=== PATIENT | male | born 1970 | race Caucasian/White ===

== ENCOUNTER 2017-08-07 12:35 | Emergency (ER) | payer SELFPAY ==
[~2017-08-07] VITALS: Ht 170.2 cm; Wt 61.4 kg
[~2017-08-07 12:35] MED LIST: ALPR.25 PO; BAYEMIS; CALC500T PO; GLUCOMETER XX; INSU-174 SQ; LISI10 PO; LORTA5 PO; METF500 PO; NOVONP2 SQ; PROT40TA PO
[2017-08-07 12:39] VITALS: BP 146/81; PULSE 81; RESP 16; TEMP 98.2; O2SAT 98
[2017-08-07 13:53] LABS: AUTOMATED NEUTROPHIL # 8.1 TH/MM3 (1.8-7.7); BASOPHIL # 0.1 TH/MM3 (0-0.2); BASOPHIL % 0.5 % (0.0-2.0); EOSINOPHIL % 0.4 % (0.0-4.0); HEMATOCRIT 42.9 % (39.0-51.0); HEMOGLOBIN 14.6 GM/DL (13.0-17.0); LYMPH % 17.4 % (9.0-44.0); LYMPHOCYTE # 1.9 TH/MM3 (1.0-4.8); MEAN CELL VOLUME 95.6 FL (80.0-100.0); MEAN CORPUSCULAR HEMOGLOBIN 32.6 PG (27.0-34.0); MEAN CORPUSCULAR HGB CONC 34.1 % (32.0-36.0); MEAN PLATELET VOLUME 8.2 FL (7.0-11.0); MONO % 8.1 % (0.0-8.0); MONOCYTE # 0.9 TH/MM3 (0-0.9); NEUT % 73.6 % (16.0-70.0); PLATELET COUNT 224 TH/MM3 (150-450); RED BLOOD COUNT 4.48 MIL/MM3 (4.50-5.90); RED CELL DISTRIBUTION WIDTH 12.9 % (11.6-17.2); WHITE BLOOD COUNT 11.1 TH/MM3 (4.0-11.0)
[2017-08-07 14:34] LABS: BICARBONATE 27.3 MEQ/L (21.0-32.0); CALCIUM 8.4 MG/DL (8.5-10.1); CREATININE 0.88 MG/DL (0.60-1.30)
[2017-08-07] MEDS ORDERED: INSULIN HUMAN REGULAR 1,000 UNITS/10 ML VIAL SQ ONE ×2 (15:15→17:45)
[2017-08-07] MEDS ORDERED: LIDOCAINE 1%/EPINEPHrine 1:100,000 SOLN 20 ML VIAL INFIL ONE (15:15)
--- NOTE | 2017-08-07 15:42 | PD ---
HPI Chief Complaint: Skin Problem Time Seen by Provider: 15:00 Travel History International Travel<30 days: No Contact w/Intl Traveler<30days: No Traveled to known affect area: No History of Present Illness HPI Patient has a 46-year-old male presenting to the emergency proper evaluation of an abscess to his left wrist. Patient states it started gradually 1 week ago getting progressively worse. His mother is present at bedside, he states she prompted him to come in. He denies any nausea, vomiting, abdominal pain, fever , chills. He reports his pain as a 10 out of 10 in states it is throbbing. Patient adamantly denies any IV drug use. Pain as exacerbated with movement or touch, is not relieved by anything. Additionally patient is diabetic, he reports sporadic compliance with insulin due to cost. Patient states that he cannot afford the insulin pens. PFSH Past Medical History Cardiomyopathy: Yes Diabetes: Yes Deep Vein Thrombosis: Yes (right groin) Gastrointestinal Disorders: Yes (Pancreatitis) Hypertension: Yes Neurologic: Yes (viral mengitis 1996) Immunizations Current: Yes Tetanus Vaccination: Unknown Past Surgical History Other Surgery: Yes (hernia repair 1998) Social History Alcohol Use: Yes (OCC) Tobacco Use: Yes (1 pack daily) Substance Use: Yes Allergies-Medications (Allergen,Severity, Reaction): Coded Allergies: *MDRO Multi-Drug Resistant Organism (Verified Adverse Reaction, Unknown, 04/24/16) MRSA (elbow) - 01/2005; (neck) - 04/2009 MRSA PCR screen (nares) POSITIVE - 04/23/16 Reported Meds & Prescriptions Reported Meds & Active Scripts Active [employer]One Insulin Syringes/ 31G X 5/16" 0.5 ml 31 Gauge X 5/16" Mis Box .ROUTE DIRECTED Lantus Inj (Insulin Glargine) 1,000 Unit/10 Ml Vial 5 Units SQ BID Inject 5 units at 0800 and 1700 daily Tramadol (Tramadol HCl) 50 Mg Tab 50 Mg PO Q6H PRN Glucophage 500 mg (Metformin HCl) 500 Mg Tab 500 Mg PO BIDPC 14 Days Start on May 05, 2016 Dio Microlet Lancets (Lancets) Lancets Mis Ea Check blood sugar 4 times daily B-D Insulin Syringe Ultra 31G X 5/16" 0.5 ml (Insulin Syringe/Needle U-100) 1 Mis Mis Each SQ Inject insulin twice daily Glucometer Kit 1 Kit XX ACHS Check blood sugar 4 times a day [place] 5-325 mg (Hydrocodone-Acetaminophen 5-325 mg) 1 Tab 1 Tab PO Q6H PRN Protonix (Pantoprazole Sodium) 40 Mg Tab 40 Mg PO DAILY Prinivil 10 mg (Lisinopril) 10 Mg Tab 10 Mg PO Q12HR Novolin N (Insulin Isophane (Human)) 1 Ml Inj 5 Units SQ BID@08,17 31 Days Calcium Gluconate 500 Mg Tab 500 Mg PO DAILY Xanax 0.25 Mg (Alprazolam) Alprazolam 0.25 mg Tab 0.25 Mg PO Q8H PRN Review of Systems Except as stated in HPI: all other systems reviewed are Neg General / Constitutional: No: Fever, Chills HENT: No: Headaches Cardiovascular: No: Chest Pain or Discomfort Respiratory: No: Cough, Shortness of Breath Gastrointestinal: No: Nausea, Vomiting, Abdominal Pain Musculoskeletal: Positive: Pain Skin: Positive Change in Pigmentation, Positive Lesions Physical Exam Narrative GENERAL: Well-developed, well-nourished, alert male. Appears uncomfortable, in no acute distress. SKIN: Warm and dry. There is not a 3 cm x 0.5 cm fluctuant lesion to left wrist on the inner anterior aspect, induration to mid posterior forearm. There is also a 3 x 3 cm ulceration to the left bicep. There is no surrounding induration or drainage noted. 2+ radial pulse, brisk less than 3 second capillary refill. HEAD: Atraumatic. Normocephalic. EYES: Pupils equal and round. No scleral icterus. No injection or drainage. ENT: No nasal bleeding or discharge. Mucous membranes pink and moist. NECK: Trachea midline. No JVD. CARDIOVASCULAR: Regular rate and rhythm. RESPIRATORY: No accessory muscle use. Clear to auscultation. Breath sounds equal bilaterally. GASTROINTESTINAL: Abdomen soft, non-tender, nondistended. Hepatic and splenic margins not palpable. MUSCULOSKELETAL: Extremities without clubbing, cyanosis, or edema. No obvious deformities. NEUROLOGICAL: Awake and alert. No obvious cranial nerve deficits. Motor grossly within normal limits. Five out of 5 muscle strength in the arms and legs. Normal speech. PSYCHIATRIC: Appropriate mood and affect; insight and judgment normal. Data Data Last Documented VS Vital Signs Date Time Temp Pulse Resp B/P (MAP) Pulse Ox O2 Delivery O2 Flow Rate FiO2 08/07/17 16:35 97.9 88 21 142/83 (102) 99 Room Air Orders Orders Complete Blood Count With Diff (08/07/17 12:57) Basic Metabolic Panel (Bmp) (08/07/17 12:57) Beta Hydroxybutyrate (Acetone) (08/07/17 15:12) Sodium Chlor 0.9% 1000 Ml Inj (Ns 1000 M (08/07/17 15:12) Insulin Human Regular Inj (Novolin R Inj (08/07/17 15:15) Wound Culture And Gram Stain (08/07/17 15:12) Iv Access Insert/Monitor (08/07/17 15:12) Ecg Monitoring (08/07/17 15:12) Oximetry (08/07/17 15:12) Lidocai-Epi 1%-1:100,000 Inj (Xylocaine- (08/07/17 15:15) Blood Glucose (08/07/17 16:17) Oxycodone-Acetamin 5-325 Mg (Percocet (08/07/17 16:30) Hepatic Functional Panel (08/07/17 16:18) Blood Culture (08/07/17 16:39) Case Management Consult (08/07/17 ) Asp:No Reaction To [facility]/Vanc (Asp Crit (08/07/17 16:45) Asp: Does Not Meet Inpt Admit (Asp Crit: (08/07/17 16:45) Asp: Iv Antibiotics Admit Only (Asp Crit (08/07/17 16:45) Asp: Location Of [facility] Admin (Asp Crit: (08/07/17 16:45) [facility] [place] [facility] [place] (08/07/17 16:45) Dalbavancin Inj (Dalvance Inj) (08/07/17 16:39) Insulin Human Regular Inj (Novolin R Inj (08/07/17 17:45) Labs Laboratory Tests Test 08/07/17 13:15 08/07/17 15:40 White Blood Count 11.1 TH/MM3 Red Blood Count 4.48 MIL/MM3 Hemoglobin 14.6 GM/DL Hematocrit 42.9 % Mean Corpuscular Volume 95.6 FL Mean Corpuscular Hemoglobin 32.6 PG Mean Corpuscular Hemoglobin Concent 34.1 % Red Cell Distribution Width 12.9 % Platelet Count 224 TH/MM3 Mean Platelet Volume 8.2 FL Neutrophils (%) (Auto) 73.6 % Lymphocytes (%) (Auto) 17.4 % Monocytes (%) (Auto) 8.1 % Eosinophils (%) (Auto) 0.4 % Basophils (%) (Auto) 0.5 % Neutrophils # (Auto) 8.1 TH/MM3 Lymphocytes # (Auto) 1.9 TH/MM3 Monocytes # (Auto) 0.9 TH/MM3 Eosinophils # (Auto) 0.0 TH/MM3 Basophils # (Auto) 0.1 TH/MM3 CBC Comment DIFF FINAL Differential Comment Blood Urea Nitrogen 12 MG/DL Creatinine 0.88 MG/DL Random Glucose 587 MG/DL Calcium Level 8.4 MG/DL Sodium Level 129 MEQ/L Potassium Level 3.9 MEQ/L Chloride Level 94 MEQ/L Carbon Dioxide Level 27.3 MEQ/L Anion Gap 8 MEQ/L Estimat Glomerular Filtration Rate 93 ML/MIN Total Bilirubin 0.5 MG/DL Direct Bilirubin 0.2 MG/DL Indirect Bilirubin 0.3 MG/DL Aspartate Amino Transf (AST/SGOT) 40 U/L Alanine Aminotransferase (ALT/SGPT) 67 U/L Alkaline Phosphatase 231 U/L Total Protein 7.5 GM/DL Albumin 3.4 GM/DL B-Hydroxybutyrate 0.15 MMOL/L MDM Medical Decision Making Medical Screen Exam Complete: Yes Emergency Medical Condition: Yes Medical Record Reviewed: Yes Interpretation(s) Vital Signs Date Time Temp Pulse Resp B/P (MAP) Pulse Ox O2 Delivery O2 Flow Rate FiO2 08/07/17 12:39 98.2 81 16 146/81 (771) 98 Differential Diagnosis Cellulitis versus abscess versus metabolic abnormality versus DKA versus hyperglycemia versus other Narrative Course Patient's a 46-year-old male that presented to the emergency room for evaluation of an abscess to his left wrist. Patient's vital signs are stable, his blood glucoses noted to be 587 in triage. Patient has a noncompliant type II diabetic, insulin as expensive but he does not use it as prescribed. Lab as ordered in triage. Please see procedure report for I&D. Patient will be given Dalvance after lab result. Wound culture obtained in pending. Patient with advised to return to emergency department in 2 days to have packing removed. Patient strongly denies IV drug use however he did comment that admitting to drugs stays on your record an can come back to "bite you". Discussed with case management, Dalvance forms completed. Pt was given 15 units SQ regular insulin for BG of 587. BG was reassessed at 1640 and was still elevated at 387, additional 10 units ordered. Patient was reassessed, Dalvance is infusing patient resting comfortably. Patient will be given prescriptions for Lantus insulin as the NovoLog pen was not too expensive for him. Dosing instructions will be the same. Patient states that he has metformin at home, he with educated to take it with his largest meals of the day. He verbalized understanding of instructions. Patient has to follow-up with his primary doctor in 2-3 days, he would advise return to emergency department 48 hours to have packing removed. After infusion as completed patient will be discharged. Procedures Procedure Narrative After the risks and benefits were discussed the following procedure was performed: INCISION AND DRAINAGE OF ABSCESS: The area was prepped and was sterilely draped. A subcutaneous wheal of 1 % Xylocaine with a total number 3 mL was used to anesthetize the area. The area was properly anesthetized. A number 11 scalpel was used to make a 1-cm incision across the area of the abscess. Cultures were obtained. The abscess was drained an irrigated with normal saline. Quarter inch iodoform packing was placed in the wound. Sterile dressing applied. Patient advised to have packing removed in two days. Diagnosis Primary Impression: Cellulitis and abscess of other specified site Additional Impression: Hyperglycemia due to type 2 diabetes mellitus Qualified Codes: E11.65 - Type 2 diabetes mellitus with hyperglycemia Referrals: Kai Alves MD 3 days Patient Instructions: Abscess (GEN), Abscess Incision and Drainage (GEN), Cellulitis (ED), Diabetic Hyperglycemia (ED), General Instructions, Type 2 Diabetes in Adults (ED) Additional Instructions: Follow-up with your primary doctor Continue medications as previously prescribed Take Metformin with your 2 largest meals of the day Return to the emergency department in 2 days to have packing removed. Change dressing as needed for soiling. Do not drive or operate machinery while taking narcotic pain medication. Med/Other Pt SpecificInfo: Prescription(s) given Scripts CareOne Insulin Syringes/ 31G X 5/16" 0.5 ml ([employer]One Insulin Syringes/ 31G X 5 16" 0.5 ml) 31 Gauge X 5/16" Mis BOX .ROUTE DIRECTED for Blood Sugar Management, #1 Prov: Minal Valles 08/07/17 Insulin Glargine Inj (Lantus Inj) 1,000 Unit/10 Ml Vial 5 UNITS SQ BID for Blood Sugar Management, #1 VIAL 0 Refills Inject 5 units at 0800 and 1700 daily Prov: Minal Valles 08/07/17 Tramadol (Tramadol) 50 Mg Tab 50 MG PO Q6H Y for PAIN, #10 TAB 0 Refills Prov: Minal Valles 08/07/17 Disposition: 01 DISCHARGE HOME Condition: Stable Minal Valles Aug 07, 2017 15:42
[2017-08-07] MEDS: SODIUM CHLOR 0.9% 1000 ML INJ 1,000 ML IV SCH ×2 (15:43→17:51)
[2017-08-07] MEDS ORDERED: oxyCODONE/ACETAMINOPHEN 5 MG/325 MG TAB PO ONE (16:30)
[2017-08-07 16:35] VITALS: BP 142/83; PULSE 88; RESP 21; TEMP 97.9; O2SAT 99
[2017-08-07] MEDS ORDERED: DALBAVANCIN INJ 1,500 MG in DEXTROSE 5% IN WATE 500 ML INJ 500 ML IV STA ×2 (16:39)
[2017-08-07] MEDS ORDERED: ASP: Location of Dalbavancin administration OTHER ONE (16:45)
[2017-08-07] MEDS ORDERED: ASP: Does not meet inpatient admission criteria OTHER ONE (16:45)
[2017-08-07] MEDS ORDERED: MISCELLANEOUS PHARMACY INFORMATION XX ONE (16:45)
[2017-08-07] MEDS ORDERED: ASP: Only reason for admit - IV antibiotics OTHER ONE (16:45)
[2017-08-07] MEDS ORDERED: ASP: No known hypersensitivity to Vanco, Telavancin, Dalbavancin OTHER ONE (16:45)
[2017-08-07 17:18] LABS: TOTAL BILIRUBIN ADULT 0.5 MG/DL (0.2-1.0); TOTAL PROTEIN 7.5 GM/DL (6.4-8.2)
[2017-08-07 17:19] LABS: ALBUMIN 3.4 GM/DL (3.4-5.0); DIRECT BILIRUBIN ADULT 0.2 MG/DL (0.0-0.2); INDIRECT BILIRUBIN 0.3 MG/DL (0.0-0.8)
[2017-08-07] MEDS ORDERED: TRAM50TA PO (17:46)
[2017-08-07] MEDS ORDERED: INSU-118 (17:55)
[2017-08-07] MEDS ORDERED: LANTUS2P SQ (17:55)
[2017-08-07 19:26] VITALS: BP 148/86; PULSE 98; RESP 20; O2SAT 100
== END 2017-08-07 21:02 | disposition home or self-care (01) ==
LOC: NEPC 12:35
DX: L02.414 Cutaneous abscess of left upper limb (principal); L03.114 Cellulitis of left upper limb; E11.65 Type 2 diabetes mellitus with hyperglycemia; A49.01 Methicillin susceptible Staphylococcus aureus infection, unspecified site; I42.9 Cardiomyopathy, unspecified; I10 Essential (primary) hypertension; F17.200 Nicotine dependence, unspecified, uncomplicated; Z86.718 Personal history of other venous thrombosis and embolism; Z87.19 Personal history of other diseases of the digestive system
CPT/HCPCS: 10060; 80048; 80076; 82010; 85025; 87040; 87070; 87077; 87186; 87205; 96361; 96365; 99284; J0875; J1815; J7030; J7060

== ENCOUNTER 2017-08-10 08:22 | Emergency (ER) | payer SELFPAY ==
[~2017-08-10 08:22] MED LIST changes: +INSU-118; +LANTUS2P SQ; +TRAM50TA PO
[2017-08-10 08:23] VITALS: BP 137/85; PULSE 83; RESP 16; TEMP 97.7; O2SAT 97
[2017-08-10] MEDS ORDERED: LISI-515 PO (08:38)
[2017-08-10] MEDS ORDERED: METF500T PO (08:44)
[2017-08-10] MEDS ORDERED: NOVONP2 SQ (08:44)
[2017-08-10] MEDS ORDERED: SODIUM CHLOR 0.9% 1000 ML INJ 1,000 ML IV ONE ×2 (09:02→09:32)
[2017-08-10] MEDS ORDERED: PIPERACIL-TAZO 4.5 GM PREMIX 100 ML IV STA (09:02)
[2017-08-10] MEDS ORDERED: VANCOMYCIN INJ 1,000 MG in SODIUM CHLOR 0.9% 250 ML INJ 250 ML IV STA (09:02)
--- NOTE | 2017-08-10 09:13 | PD ---
HPI Chief Complaint: Skin Problem Time Seen by Provider: 08:35 Travel History International Travel<30 days: No Contact w/Intl Traveler<30days: No Traveled to known affect area: No History of Present Illness HPI 46-year-old male with recent history of abscess to the left wrist positive for Klebsiella and MRSA, return to emergency Department for packing removal. Patient is also a type II diabetic who is supposed to be on insulin, but is currently not due to "financial reasons". Patient was given Dalvance 3 days ago. He denies fever or chills. He has pain in the left wrist and forearm. The original dressing is in place. Patient denies IV drug abuse. Pain is approximately a 6 out of 10. He states he is unsure what his blood sugars. He has history of MRSA and has no known drug allergies. Bedside blood glucose is 427. PFSH Past Medical History Cardiomyopathy: Yes Cardiovascular Problems: Yes (HTN) Diabetes: Yes Patient Takes Glucophage: No Diminished Hearing: No Deep Vein Thrombosis: Yes (right groin) Gastrointestinal Disorders: Yes (Pancreatitis) Hypertension: Yes Neurologic: Yes (viral mengitis 1996) Integumentary: Yes (MRSA) Immunizations Current: Yes Past Surgical History Other Surgery: Yes (hernia repair 1998) Social History Alcohol Use: Yes (OCC) Tobacco Use: Yes (1 pack daily) Substance Use: Yes Allergies-Medications (Allergen,Severity, Reaction): Coded Allergies: *MDRO Multi-Drug Resistant Organism (Verified Adverse Reaction, Unknown, ) MRSA (elbow) - 01/2005; (neck) - 04/2009 MRSA PCR screen (nares) POSITIVE - 04/23/16 Reported Meds & Prescriptions Reported Meds & Active Scripts Active Bactroban Topical (Mupirocin) 22 Gm Cream 1 Applic TOPICAL BID [employer]One Insulin Syringes/ 31G X 16" 0.5 ml 31 Gauge X 5/16" Mis Box .ROUTE DIRECTED Lantus Inj (Insulin Glargine) 1,000 Unit/10 Ml Vial 5 Units SQ BID Inject 5 units at 0800 and 1700 daily Reported Metformin (Metformin HCl) 500 Mg Tab 500 Mg PO BIDPC Novolin N Inj (Insulin Human NPH) 1,000 Unit/10 Ml Vial 7 Units SQ TID Lisinopril 20 Mg Tab 20 Mg PO DAILY Review of Systems Except as stated in HPI: all other systems reviewed are Neg General / Constitutional: No: Fever, Chills Eyes: No: Visual changes HENT: No: Headaches Cardiovascular: No: Chest Pain or Discomfort Respiratory: No: Shortness of Breath Gastrointestinal: No: Abdominal Pain Genitourinary: No: Dysuria Musculoskeletal: No: Pain Skin: Positive Lesions (draining abscess to the left lateral wrist.), No Rash Neurologic: No: Weakness Psychiatric: No: Depression Endocrine: No: Polydipsia Hematologic/Lymphatic: No: Easy Bruising Physical Exam Narrative GENERAL: Patient appears in no obvious distress. SKIN: Warm and dry. Normal color. Normal turgor. Patient purulent drainage from the left distal forearm/wrist on the lateral aspect with localized erythema and induration. HEAD: Atraumatic. Normocephalic. EYES: Pupils equal and round. No scleral icterus. No injection or drainage. ENT: No nasal bleeding or discharge. Mucous membranes pink and moist. Pharynx is clear. Airway is patent. NECK: Trachea midline. No JVD. Supple and nontender. CARDIOVASCULAR: Regular rate and rhythm. No murmurs gallops or rubs appreciated. RESPIRATORY: No accessory muscle use. Clear to auscultation. Breath sounds equal bilaterally. MUSCULOSKELETAL: Extremities without clubbing, cyanosis, or edema. No obvious deformities. NEUROLOGICAL: Awake and alert. No obvious cranial nerve deficits. Motor grossly within normal limits. Five out of 5 muscle strength in the arms and legs. Normal speech. PSYCHIATRIC: Appropriate mood and affect; insight and judgment normal. Data Data Last Documented VS Vital Signs Date Time Temp Pulse Resp B/P (MAP) Pulse Ox O2 Delivery O2 Flow Rate FiO2 08/10/17 09:16 98 Room Air 08/10/17 08:23 97.7 83 16 Orders Orders Blood Glucose (08/10/17 08:52) Beta Hydroxybutyrate (Acetone) (08/10/17 09:02) Osmolality,Serum (08/10/17 09:02) Urinalysis - C+S If Indicated (08/10/17 09:02) Ecg Monitoring (08/10/17 09:02) Iv Access Insert/Monitor (08/10/17 09:02) Oximetry (08/10/17 09:02) NPO (08/10/17 09:02) Sodium Chlor 0.9% 1000 Ml Inj (Ns 1000 M (08/10/17 09:02) Sodium Chlor 0.9% 1000 Ml Inj (Ns 1000 M (08/10/17 09:32) Sodium Chloride 0.9% Flush (Ns Flush) (08/10/17 09:15) Insulin Human Regular Inj (Novolin R Inj (08/10/17 09:15) Sepsis Workup Initiated (08/10/17 ) Electrocardiogram (08/10/17 09:02) Complete Blood Count With Diff (08/10/17 09:02) Comprehensive Metabolic Panel (08/10/17 09:02) Prothrombin Time / Inr (Pt) (08/10/17 09:02) Act Partial Throm Time (Ptt) (08/10/17 09:02) Lactic Acid Sepsis Protocol (08/10/17 09:02) Blood Culture (08/10/17 09:02) Chest, Single Ap (08/10/17 09:02) Piperacil-Tazo 4.5 Gm Premix (Zosyn 4.5 (08/10/17 09:02) Vancomycin Inj (Vancomycin Inj) (08/10/17 09:02) Wound Care (08/10/17 09:05) Consult Infectious Disease (08/10/17 ) Case Management Consult (08/10/17 ) Asp:No Reaction To [place]/Vanc (Asp Crit (08/10/17 11:15) Asp: Does Not Meet Inpt Admit (Asp Crit: (08/10/17 11:15) Asp: Iv Antibiotics Admit Only (Asp Crit (08/10/17 11:15) Asp: Location Of [facility] Admin (Asp Crit: (08/10/17 11:15) [facility] [facility] [place] (08/10/17 11:15) Dal[place]avancin Inj (Dalvance Inj) (08/10/17 11:13) Anshu Bandage (08/10/17 11:13) Elevate (08/10/17 11:13) Document (08/10/17 11:13) Measurements (08/10/17 11:13) (Hub Use Only)Inp Phy Cons/Ref (08/10/17 ) Blood Glucose (08/10/17 12:07) Ed Discharge Order (08/10/17 12:32) Labs Laboratory Tests Test 08/10/17 09:11 08/10/17 11:12 White Blood Count 10.0 TH/MM3 Red Blood Count 4.55 MIL/MM3 Hemoglobin 14.8 GM/DL Hematocrit 42.6 % Mean Corpuscular Volume 93.7 FL Mean Corpuscular Hemoglobin 32.6 PG Mean Corpuscular Hemoglobin Concent 34.8 % Red Cell Distribution Width 12.5 % Platelet Count 238 TH/MM3 Mean Platelet Volume 8.1 FL Neutrophils (%) (Auto) 70.3 % Lymphocytes (%) (Auto) 19.7 % Monocytes (%) (Auto) 8.7 % Eosinophils (%) (Auto) 0.7 % Basophils (%) (Auto) 0.6 % Neutrophils # (Auto) 7.0 TH/MM3 Lymphocytes # (Auto) 2.0 TH/MM3 Monocytes # (Auto) 0.9 TH/MM3 Eosinophils # (Auto) 0.1 TH/MM3 Basophils # (Auto) 0.1 TH/MM3 CBC Comment DIFF FINAL Differential Comment Prothrombin Time 10.3 SEC Prothromb Time International Ratio 1.0 RATIO Activated Partial Thromboplast Time 25.7 SEC Blood Urea Nitrogen 15 MG/DL Creatinine 0.74 MG/DL Random Glucose 441 MG/DL Total Protein 6.9 GM/DL Albumin 2.9 GM/DL Calcium Level 8.9 MG/DL Alkaline Phosphatase 213 U/L Aspartate Amino Transf (AST/SGOT) 26 U/L Alanine Aminotransferase (ALT/SGPT) 48 U/L Total Bilirubin 0.6 MG/DL Sodium Level 133 MEQ/L Potassium Level 4.3 MEQ/L Chloride Level 96 MEQ/L Carbon Dioxide Level 30.4 MEQ/L Anion Gap 7 MEQ/L Estimat Glomerular Filtration Rate 114 ML/MIN Serum Osmolality 295 MOSM/KG Lactic Acid Level 1.2 mmol/L B-Hydroxybutyrate 0.22 MMOL/L Urine Color YELLOW Urine Turbidity HAZY Urine pH 7.0 Urine Specific [place] 1.030 Urine Protein NEG mg/dL Urine Glucose (UA) 1000 mg/dL Urine Ketones NEG mg/dL Urine Occult Blood NEG Urine Nitrite NEG Urine Bilirubin NEG Urine Urobilinogen LESS THAN 2.0 MG/DL Urine Leukocyte Esterase NEG Urine RBC 1 /hpf Urine WBC 2 /hpf Urine Amorphous Sediment FEW Urine Bacteria RARE /hpf Microscopic Urinalysis Comment CULT NOT INDICATED MDM Medical Decision Making Medical Screen Exam Complete: Yes Emergency Medical Condition: Yes Medical Record Reviewed: Yes Differential Diagnosis Left wrist cellulitis with abscess. Hyperglycemia. Failure to outpatient therapy. Narrative Course Patient appears medically stable at time of exam. Sepsis protocol was initiated based on the patient's history. Patient is given 10 units regular insulin for his blood sugar 427. Labs ordered including CBC, CMP, lactic acid, blood cultures 2, urinalysis, serum osmolality, and beta hydroxybutyrate. Patient is given 2 L normal saline bolus. Patient is given Zosyn 4.5 g IV as well as 1000 mg vancomycin. Chest x-ray is ordered as well as EKG. EKG is unremarkable. Chest x-ray is unremarkable. CBC shows no significant leukocytosis. Coagulation studies are normal. CMP shows slightly low sodium 133, chloride 96, otherwise unremarkable with BUN of 15, creatinine 0.74. Glucose is elevated at 441. Serum osmolality is normal at 295, lactic acid is 1.2. Alkaline phosphatase is elevated at 213, albumin is low at 2.9. Repeat blood sugars is 273. Patient is felt stable for discharge home as he has been treated with Dalvance. Patient is given a prescription for Bactroban to the wound site. Patient is to wash and clean the wound site twice daily and cover with Bactroban and sterile dressing. Patient is to get his insulin is started treating his diabetes appropriately. Patient can return the emergency Department with worsening symptoms as needed. Diagnosis Primary Impression: Acute hyperglycemia Additional Impression: Abscess of arm, left Referrals: [facility] Patient Instructions: Diabetic Hyperglycemia (ED), General Instructions Additional Instructions: Patient is felt stable for discharge home as he has been treated with Dalvance. Patient is given a prescription for Bactroban to the wound site. Patient is to wash and clean the wound site twice daily and cover with Bactroban and sterile dressing. Patient is to get his insulin is started treating his diabetes appropriately. Patient can return the emergency Department with worsening symptoms as needed. Med/Other Pt SpecificInfo: Prescription(s) given, No Change to Meds, Wound Care Scripts Mupirocin Topical (Bactroban Topical) 22 Gm Cream 1 APPLIC TOPICAL BID for Mgmt Bacterial Infection, #1 TUBE 0 Refills Prov: Shellie Ritter MD 08/10/17 Disposition: DISCHARGE HOME Condition: Stable Everardo Cuevas Aug 10, 2017 09:13
[2017-08-10] MEDS ORDERED: INSULIN HUMAN REGULAR 1,000 UNITS/10 ML VIAL IV PUSH ONE (09:15)
[2017-08-10] MEDS ORDERED: SODIUM CHLORIDE 0.9% FLUSH 10 ML FLUSH IVF PRN (09:15)
[2017-08-10 09:16] VITALS: O2SAT 98
--- NOTE | 2017-08-10 09:30 | RADRPT ---
EXAM DATE/TIME: 08/10/2017 09:24 [place] COMPARISON: No previous studies available for comparison. INDICATIONS : Cough for 3 days MEDICAL HISTORY : None. SURGICAL HISTORY : None. ENCOUNTER: Initial ACUITY: 3 days PAIN SCORE: 0/10 LOCATION: Bilateral chest FINDINGS: The lungs are clear without infiltrate, nodule, or mass. There is no appreciable pleural effusion fo r technique. Heart and mediastinum are unremarkable. CONCLUSION: No acute cardiopulmonary disease. Priya Caraballo MD on August 10, 2017 at 9:28 Board Certified Radiologist. This report was verified electronically.
[2017-08-10 09:48] LABS: BASOPHIL # 0.1 TH/MM3 (0-0.2); BASOPHIL % 0.6 % (0.0-2.0); EOSINOPHIL # 0.1 TH/MM3 (0-0.4); EOSINOPHIL % 0.7 % (0.0-4.0); HEMATOCRIT 42.6 % (39.0-51.0); HEMOGLOBIN 14.8 GM/DL (13.0-17.0); LYMPH % 19.7 % (9.0-44.0); MEAN CELL VOLUME 93.7 FL (80.0-100.0); MEAN CORPUSCULAR HEMOGLOBIN 32.6 PG (27.0-34.0); MEAN CORPUSCULAR HGB CONC 34.8 % (32.0-36.0); MEAN PLATELET VOLUME 8.1 FL (7.0-11.0); MONO % 8.7 % (0.0-8.0); MONOCYTE # 0.9 TH/MM3 (0-0.9); NEUT % 70.3 % (16.0-70.0); PLATELET COUNT 238 TH/MM3 (150-450); RED BLOOD COUNT 4.55 MIL/MM3 (4.50-5.90); RED CELL DISTRIBUTION WIDTH 12.5 % (11.6-17.2)
[2017-08-10 09:56] LABS: PROTHROMBIN TIME - PATIENT 10.3 SEC (9.8-11.6)
[2017-08-10 10:09] LABS: ALBUMIN 2.9 GM/DL (3.4-5.0); ALKALINE PHOSPHATASE 213 U/L (45-117); ALT (GPT) 48 U/L (12-78); AST (GOT) 26 U/L (15-37); BICARBONATE 30.4 MEQ/L (21.0-32.0); BLOOD UREA NITROGEN 15 MG/DL (7-18); CALCIUM 8.9 MG/DL (8.5-10.1); CHLORIDE 96 MEQ/L (98-107); CREATININE 0.74 MG/DL (0.60-1.30); GLOMERULAR FILTRATION RATE 114 ML/MIN (>89); SODIUM (NA) 133 MEQ/L (136-145); TOTAL BILIRUBIN ADULT 0.6 MG/DL (0.2-1.0); TOTAL PROTEIN 6.9 GM/DL (6.4-8.2)
[2017-08-10 10:15] LABS: GLUCOSE,RANDOM 441 MG/DL (74-106)
[2017-08-10] MEDS ORDERED: DALBAVANCIN INJ 1,125 MG in DEXTROSE 5% IN WATER INJ 250 ML IV STA ×2 (11:13)
[2017-08-10] MEDS ORDERED: ASP: Location of Dalbavancin administration OTHER ONE (11:15)
[2017-08-10] MEDS ORDERED: ASP: Only reason for admit - IV antibiotics OTHER ONE (11:15)
[2017-08-10] MEDS ORDERED: MISCELLANEOUS PHARMACY INFORMATION XX ONE (11:15)
[2017-08-10] MEDS ORDERED: ASP: Does not meet inpatient admission criteria OTHER ONE (11:15)
[2017-08-10] MEDS ORDERED: ASP: No known hypersensitivity to Vanco, Telavancin, Dalbavancin OTHER ONE (11:15)
[2017-08-10 11:51] LABS: AMORPHOUS SEDIMENT, URINE FEW; BACTERIA, URINE RARE /hpf; BILIRUBIN, URINE NEG (NEG); BLOOD, URINE NEG (NEG); GLUCOSE,URINE 1000 mg/dL (NEG); KETONE, URINE NEG (NEG); NITRITE,URINE NEG (NEG); URINE COLOR YELLOW (YELLW/STRAW); URINE LEUKOCYTE ESTERASE NEG (NEG)
[2017-08-10] MEDS ORDERED: MUPI2%T TOPICAL (12:32)
[2017-08-10 12:59] VITALS: BP 138/78; PULSE 70; RESP 21; O2SAT 98
--- NOTE | 2017-08-10 14:35 | EKG ---
Date Performed: 08/10/2017 Time Performed: 09:46:23 PTAGE: 46 years EKG: Sinus rhythm NORMAL ECG Since PREVIOUS TRACING , no significant change noted PREVIOUS TRACIN09/13/2010 15.47 DOCTOR: Ronak Rousseau Interpretating Date/Time 08/10/2017 14:34:08
== END 2017-08-10 13:31 | disposition home or self-care (01) ==
LOC: NEPD 08:22
DX: E11.65 Type 2 diabetes mellitus with hyperglycemia (principal); L02.414 Cutaneous abscess of left upper limb; I10 Essential (primary) hypertension; I42.9 Cardiomyopathy, unspecified; F17.200 Nicotine dependence, unspecified, uncomplicated; Z86.14 Personal history of Methicillin resistant Staphylococcus aureus infection; Z86.718 Personal history of other venous thrombosis and embolism; Z79.4 Long term (current) use of insulin; Z79.84 Long term (current) use of oral hypoglycemic drugs; Z79.899 Other long term (current) drug therapy
CPT/HCPCS: 71045; 80053; 81001; 82010; 83605; 83930; 85025; 85610; 85730; 87040; 93005; 96365; 96366; 96375; 99285; J1815; J2543; J3370; J7030; J7050

== ENCOUNTER 2017-08-12 15:29 | Emergency (ER) | payer SELFPAY ==
[~2017-08-12] VITALS: Ht 170.2 cm; Wt 61.4 kg
[~2017-08-12 15:29] MED LIST changes: -ALPR.25 PO; -BAYEMIS; -CALC500T PO; -GLUCOMETER XX; -INSU-174 SQ; +LISI-515 PO; -LISI10 PO; -LORTA5 PO; -METF500 PO; +METF500T PO; +MUPI2%T TOPICAL; -PROT40TA PO; -TRAM50TA PO
[2017-08-12 15:31] VITALS: BP 135/80; PULSE 76; RESP 16; TEMP 98; O2SAT 97
[2017-08-12] MEDS ORDERED: BACT800T5 PO (16:43)
--- NOTE | 2017-08-12 16:45 | PD ---
HPI Chief Complaint: Wound/Suture/Staple Re-Check Time Seen by Provider: 16:06 Travel History International Travel<30 days: No Contact w/Intl Traveler<30days: No Traveled to known affect area: No History of Present Illness HPI 46-year-old male here for abscess recheck to his left forearm. He denies fever or chills. He reports the area is improving. He reports that there is a new area of swelling which she believes is a possible abscess. Patient is a diabetic and per previous was not taking his insulin. He reports he now has his diabetes medication is taking them regularly. He denies signs or symptoms of hyperglycemia. He reports continued but improved pain the left distal forearm area and the area continues to drain. Symptom severity is moderate. No aggravating or alleviating factors. Of note patient got Dalvance at his previous visit. PFSH Past Medical History Hx Anticoagulant Therapy: No Cardiomyopathy: Yes Cardiovascular Problems: Yes (HTN) Diabetes: Yes Patient Takes Glucophage: No Diminished Hearing: No Deep Vein Thrombosis: Yes (right groin) Gastrointestinal Disorders: Yes (Pancreatitis) Hypertension: Yes Neurologic: Yes (viral mengitis 1996) Integumentary: Yes (MRSA) Immunizations Current: Yes Past Surgical History Other Surgery: Yes (hernia repair 1998) Social History Alcohol Use: Yes (OCC) Tobacco Use: Yes (1 pack daily) Substance Use: Yes Allergies-Medications (Allergen,Severity, Reaction): Coded Allergies: *MDRO Multi-Drug Resistant Organism (Verified Adverse Reaction, Unknown, ) MRSA (elbow) - 01/2005; (neck) - 04/2009 MRSA PCR screen (nares) POSITIVE - 04/23/16 Reported Meds & Prescriptions Reported Meds & Active Scripts Active Bactroban Topical (Mupirocin) 22 Gm Cream 1 Applic TOPICAL BID [facility] Insulin Syringes/ 31G X 12/04" 0.5 ml 31 Gauge X 16" Mis Box .ROUTE DIRECTED Lantus Inj (Insulin Glargine) 1,000 Unit/10 Ml Vial 5 Units SQ BID Inject 5 units at 0800 and 1700 daily Reported Metformin (Metformin HCl) 500 Mg Tab 500 Mg PO BIDPC Novolin N Inj (Insulin Human NPH) 1,000 Unit/10 Ml Vial 7 Units SQ TID Lisinopril 20 Mg Tab 20 Mg PO DAILY Review of Systems Except as stated in HPI: all other systems reviewed are Neg General / Constitutional: No: Fever Eyes: No: Visual changes HENT: No: Headaches Cardiovascular: No: Chest Pain or Discomfort Respiratory: No: Shortness of Breath Gastrointestinal: No: Abdominal Pain Physical Exam Narrative GENERAL: Alert and well-appearing 46-year-old male SKIN: Warm and dry. Open and Draining abscess to the left lateral forearm which was previously incised. New abscess formation proximally to the original abscess. This area is marked with a wound pen. The erythema has not spread beyond the marked edges. The area is fluctuant. HEAD: Normocephalic. EYES: No injection or drainage. NECK: Supple, trachea midline. No JVD or lymphadenopathy. CARDIOVASCULAR: Regular rate and rhythm without murmurs, gallops, or rubs. RESPIRATORY: Breath sounds equal bilaterally. No accessory muscle use. See skin noted above MUSCULOSKELETAL: No cyanosis, or edema. See skin noted above. Data Data Last Documented VS Vital Signs Date Time Temp Pulse Resp B/P (MAP) Pulse Ox O2 Delivery O2 Flow Rate FiO2 08/12/17 15:31 98.0 76 16 135/80 (98) 97 MDM Medical Decision Making Medical Screen Exam Complete: Yes Emergency Medical Condition: Yes Differential Diagnosis Abscess, cellulitis, lymphangitis Narrative Course 46-year-old male here for abscess recheck. The area appears to be healing with the exception of the new abscess formation proximal to the original. Incision and drainage was performed. Patient tolerated procedure well. Per medical record patient is growing Klebsiella and MRSA from the wound. He was given a dose of Dalvance at his previous visit. He is clinically stable and ready for discharge. Diagnosis Primary Impression: Abscess Referrals: Primary Care Physician Additional Instructions: Cleansed the area daily with soap and water. Keep the area covered with a clean dry dressing. Bactrim as prescribed. Continue your diabetes medications as prescribed Return for packing removal in 2 days. Scripts Sulfamethoxazole-Trimethoprim (Bactrim DS) 800-160 Mg Tab 1 TAB PO BID for Infection, #20 TAB 0 Refills Prov: Mylene Garcia 08/12/17 Disposition: DISCHARGE HOME Condition: Stable Mylene Garcia Aug 12, 2017 16:45
== END 2017-08-12 16:51 | disposition home or self-care (01) ==
LOC: PHEFT 15:29
DX: Z48.00 Encounter for change or removal of nonsurgical wound dressing (principal)
CPT/HCPCS: 99281

== ENCOUNTER 2018-01-04 23:48 | Emergency (ER) | payer SELFPAY ==
[~2018-01-04 23:48] MED LIST changes: +BACT800T5 PO
[2018-01-05 00:01] VITALS: BP 145/73; PULSE 78; RESP 18; TEMP 98.1; O2SAT 97
--- NOTE | 2018-01-05 00:50 | PD ---
HPI Chief Complaint: Skin Problem Time Seen by Provider: 00:40 Travel History International Travel<30 days: No Contact w/Intl Traveler<30days: No Traveled to known affect area: No History of Present Illness HPI 47-year-old male presents for evaluation of a rash. Symptom onset 3 weeks ago. Reports that the rash is itchy and so he has been picking and squeezing in his skin in multiple places. He reports that he believes that he is being bitten by mosquitoes in a new apartment. Symptoms are moderate, aggravated by picking and squeezing of the skin with no alleviating factors. Denies any fevers or chills. Endorses history of IV drug use. He has no other complaints at this time. PFS Past Medical History Hx Anticoagulant Therapy: No Cardiomyopathy: Yes Cardiovascular Problems: Yes (HTN) Diabetes: Yes Patient Takes Glucophage: No Diminished Hearing: No Deep Vein Thrombosis: Yes (right groin) Gastrointestinal Disorders: Yes (Pancreatitis) Hypertension: Yes Neurologic: Yes (viral mengitis 1996) Integumentary: Yes (MRSA) Immunizations Current: Yes Past Surgical History Other Surgery: Yes (hernia repair 1998) Social History Alcohol Use: Yes Tobacco Use: Yes (1 pack daily) Substance Use: Yes (HEROIN, COCAINE) Allergies-Medications (Allergen,Severity, Reaction): Coded Allergies: *MDRO Multi-Drug Resistant Organism (Verified Adverse Reaction, Unknown, ) MRSA (elbow) - 01/2005; (neck) - 04/2009 MRSA PCR screen (nares) POSITIVE - 04/23/16 Reported Meds & Prescriptions Reported Meds & Active Scripts Active Keflex (Cephalexin) 500 Mg Capsule 500 Mg PO QID Bactrim DS (Sulfamethoxazole-Trimethoprim) 800-160 Mg Tab 1 Tab PO BID Bactrim DS (Sulfamethoxazole-Trimethoprim) 800-160 Mg Tab 1 Tab PO BID Bactroban Topical (Mupirocin) 22 Gm Cream 1 Applic TOPICAL BID [facility] Insulin Syringes/ 31G X 16" 0.5 ml 31 Gauge X 5/16" Mis Box .ROUTE DIRECTED Reported Novolin N Inj (Insulin Human NPH) 1,000 Unit/10 Ml Vial 7 Units SQ TID Review of Systems Except as stated in HPI: all other systems reviewed are Neg Physical Exam Narrative GENERAL: Disheveled male in no acute distress SKIN: Warm and dry. Multiple open sores noted to the extremities primarily. There are some on the torso as well. Some areas of erythema in various places. HEAD: Atraumatic. Normocephalic. EYES: Pupils equal and round. No scleral icterus. No injection or drainage. ENT: No nasal bleeding or discharge. Mucous membranes pink and moist. NECK: Trachea midline. No JVD. CARDIOVASCULAR: Regular rate and rhythm. No murmur appreciated. RESPIRATORY: No accessory muscle use. Clear to auscultation. Breath sounds equal bilaterally. GASTROINTESTINAL: Abdomen soft, non-tender, nondistended. Hepatic and splenic margins not palpable. MUSCULOSKELETAL: No obvious deformities. No clubbing. No cyanosis. No edema. NEUROLOGICAL: Awake and alert. No obvious cranial nerve deficits. Motor grossly within normal limits. Normal speech. Data Data Last Documented VS Vital Signs Date Time Temp Pulse Resp B/P (MAP) Pulse Ox O2 Delivery O2 Flow Rate FiO2 01/05/18 00:01 98.1 78 18 145/73 (97) 97 Orders Orders Sulfamet-Trimeth Ds 800-160 Mg (Bactrim (01/05/18 01:00) Ed Discharge Order (01/05/18 00:48) Cephalexin (Keflex) (01/05/18 01:00) [facility] Medical Decision Making Medical Screen Exam Complete: Yes Emergency Medical Condition: Yes Medical Record Reviewed: Yes Differential Diagnosis Cellulitis, abscess, infected bug bites, viral exanthem Narrative Course The patient has multiple open lesions secondary to picking and scratching at his skin. He has various areas of cellulitis. He is not toxic in appearance and he is afebrile and not tachycardic. The plan is to treat him as an outpatient with Bactrim and Keflex, first dose was provided here. Diagnosis Primary Impression: Cellulitis Additional Impression: Skin picking habit Additional Instructions: Medication as prescribed. Wash the areas with warm soap and water 2-3 times a day and apply antibiotic cream to the open wounds. Return for any emergent medical conditions. Med/Other Pt SpecificInfo: Prescription(s) given Scripts Cephalexin (Keflex) 500 Mg Capsule 500 MG PO QID for Infection, #40 CAP 0 Refills Prov: Tj Sebastian MD 01/05/18 Sulfamethoxazole-Trimethoprim (Bactrim DS) 800-160 Mg Tab 1 TAB PO BID for Infection, #20 TAB 0 Refills Prov: Tj Sebastian MD 01/05/18 Disposition: 01 DISCHARGE HOME Condition: Stable Macho Bland Jan 05, 2018 00:50
[2018-01-05] MEDS ORDERED: BACT800T5 PO (00:51)
[2018-01-05] MEDS ORDERED: CEPH-460 PO (00:51)
[2018-01-05] MEDS ORDERED: SULFAMETHOXAZOLE-TRIMETHOPRIM DS 800-160 MG TAB PO ONE (01:00)
[2018-01-05] MEDS ORDERED: CEPHALEXIN MONOHYDRATE 500 MG CAP PO ONE (01:00)
== END 2018-01-05 01:24 | disposition home or self-care (01) ==
LOC: NEPD 23:48
DX: L03.90 Cellulitis, unspecified (principal); I42.9 Cardiomyopathy, unspecified; I10 Essential (primary) hypertension; E11.9 Type 2 diabetes mellitus without complications; F17.200 Nicotine dependence, unspecified, uncomplicated; F11.90 Opioid use, unspecified, uncomplicated; F14.90 Cocaine use, unspecified, uncomplicated; Z79.4 Long term (current) use of insulin; Z86.718 Personal history of other venous thrombosis and embolism; Z87.19 Personal history of other diseases of the digestive system
CPT/HCPCS: 99283